=== PATIENT | male | born 1995 | race Caucasian/White ===

== ENCOUNTER 2023-08-01 10:54 | Emergency (ER) | payer OTHER, SELFPAY ==
[2023-08-01 10:59] VITALS: BP 119/80; PULSE 64; RESP 20; TEMP 36.8; O2SAT 100; BMI 15.9
--- NOTE | 2023-08-01 11:10 | ECG_ITS ---
[facility] Test Date: 2023-08-01 Pat Name: ARGENIS GALLEGOS Department: Room: - Gender: Male Rn Allergy: : 1995 Requested By: Order Number: [id number] Reading MD: JOHN FARAH Measurements Intervals [place] Rate: 68 P: 65 AL: 104 QRS: 81 QRSD: 94 T: 69 QT: 396 QTc: 412 Interpretive Statements 1100 Sinus rhythm 1102 Sinus arrhythmia 2210 Short AL interval 9150 abnormal ECG No previous ECG available for comparison Electronically Signed On 08-02-2023 7:08:13 EDT by JOHN FARAH
--- NOTE | 2023-08-01 11:13 | PC.NURSE ---
Patient reports recently quit smoking and has been vaping and is trying to quit vaping at this time.
--- NOTE | 2023-08-01 11:32 | ED_ITS ---
HPI - General Adult General Chief complaint: Anxiety Stated complaint: HEART PALPITATIONS Time Seen by Provider: 08/01/23 11:19 Source: patient Mode of arrival: walk-in Limitations: no limitations History of Present Illness HPI narrative: this patient's here complaining of palpitations and possible racing heart rate. He has a pulse oximetry at home. He says that sometimes when he gets up and moves about his heart rate goes up to ninety. When he rustic slows down to fifty. He quit smoking daily use of marijuana products approximately one week ago any been on that for many many years. He does not use any other stimulants or amphetamines. His caffeine intake is one or 2 cups of coffee a day. He does not use any other eenergy pills. He's lost about 5 pounds. He is not known of any thyroid disease. He really hasn't seen a doctor recently. He's not had influenza or viral type symptomatology. He's not had fever shakes or chills. No swelling of his legs. No history of cardiac problems. No tobacco use. Related Data Allergies Allergy/AdvReac Type Severity Reaction Status Date / Time No Known Drug Allergies Allergy Verified 08/01/23 10:59 [facility] Social History Smoking status: Current every day smoker Exam Narrative Exam Narrative: awake alert pleasant good historian no distress. 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 He did not show any ectopy or tachyarrhythmia. Constitutional his color is good his skin is warm and dry he is quite thin. Mucous members are moist and pink. I shows no evidence of scleral icterus or anemia. Neck is soft and supple. Respiratory his lungs are completely clear with no wheezes rales or rhonchi. Chest his heart sounds are normal with no clicks rubs gallops or murmurs. Chest wall is nontender. Extremities show no evidence of deep vein thrombosis phlebitis or edema. Neurological examination shows no focal neurological deficits or symptomatology. Addendum to the neck he has no evidence of thyroid nodules or masses. Constitutional Vital Signs, click to edit/add: Last Vital Signs Temp 98.3 F 08/01/23 10:59 Pulse 64 08/01/23 10:59 Resp 20 08/01/23 10:59 BP 119/80 08/01/23 10:59 Pulse Ox 100 08/01/23 10:59 O2 Del Method Room Air 08/01/23 10:59 Course Vital Signs Vital signs: Vital Signs Temperature 98.3 F 08/01/23 10:59 Pulse Rate 64 08/01/23 10:59 Respiratory Rate 20 08/01/23 10:59 Blood Pressure 119/80 08/01/23 10:59 Pulse Oximetry 100 08/01/23 10:59 Oxygen Delivery Method Room Air 08/01/23 10:59 Temperature 98.3 F 08/01/23 10:59 Pulse Rate 64 08/01/23 10:59 Respiratory Rate 20 08/01/23 10:59 Blood Pressure 119/80 08/01/23 10:59 Pulse Oximetry 100 08/01/23 10:59 Oxygen Delivery Method Room Air 08/01/23 10:59 Medical Decision Making MDM Narrative Medical decision making narrative: patient's 12-lead EKG shows sinus rhythm with CA interval 0.10. There is no delta wave or evidence of reentrant tachycardia. No ST segment elevation or evidence of pericarditis. His thyroid study is normal. He's recently discontinued chronic use of marijuana. I see no acute emergency condition but he should follow up with primary care doctor for further evaluation of his symptoms and possible Holter monitoring, but even by history his heart rate does not get above one hundred. Discharge Plan Discharge Chief Complaint: Anxiety Clinical Impression: Heart palpitations Patient Disposition: Home, Self-Care Time of Disposition Decision: 12:28 Additional Instructions: follow-up with his local provider to consider Holter monitoring and other diagnostics as indicated and return for any heart rate above 130/140 Stand Alone Forms: Portal Instructions Referrals: Physician,Non-Staff, MD [Primary Care Provider] - 1 week
--- NOTE | 2023-08-01 11:45 | XR_ITS ---
The [address] [address] Patient Name: ARGENIS GALLEGOS MRN: [id number] date: 1995 Sex: M Assigned Patient Location: ED.MAIN Current Patient Location: ER Accession/Order Number: [id number] Exam Date: 08/01/2023 11:40 Report Date: 08/01/2023 12:05 At the request of: JAVIER VAUGHN Procedure: XR chest 1V EXAM: XR chest 1V HISTORY: tachycardia COMPARISON: None. TECHNIQUE: AP view of the chest. FINDINGS: The cardiomediastinal silhouette is normal. The lungs are clear. There is no pneumothorax. No pleural effusion is noted. The osseous structures are intact. XR/XR chest 1V IMPRESSION: No acute cardiopulmonary process. Electronically authenticated by: KARRI BELTRAN Date: 08/01/2023 12:05
[2023-08-01 11:50] LABS: Basophils Percent Auto 0.3 % (0.2-2.0); Eosinophils Percent Auto 0.4 % (0.9-7.0); Hematocrit 43.4 % (42.0-54.0); Hemoglobin 14.9 g/dL (14.0-18.0); Immature Granulocytes Abs Auto 0.01 10^3/uL (0.00-0.03); Immature Granulocytes Pct Auto 0.1 % (0.0-0.5); Lymphocytes Absolute Auto 1.9 10^3/uL (1.2-3.8); Lymphocytes Percent Auto 26.8 % (20.5-60.0); Mean Corpuscular HGB Conc 34.3 g/dL (29.9-35.2); Mean Corpuscular Hemoglobin 29.7 pg (25.9-34.0); Mean Corpuscular Volume 86.5 fL (80.0-94.0); Mean Platelet Volume 10.5 fL (9.5-13.5); Monocytes Absolute Auto 0.5 10^3/uL (0.3-0.8); Monocytes Percent Auto 6.4 % (1.7-12.0); Neutrophils Absolute Auto 4.7 10^3/uL (1.4-6.5); Platelet Count 227 10^3/uL (150-450); Red Blood Count 5.02 10^6/uL (4.70-6.10); Red Cell Distribution Width 11.6 % (11.0-15.0); White Blood Count 7.1 10^3/uL (4.0-11.0)
[2023-08-01 11:55] VITALS: BP 119/80; PULSE 58; O2SAT 100
[2023-08-01 12:03] LABS: Alanine Aminotransferase 19 U/L (16-63); Albumin Globulin Ratio 1.3; Albumin Level 4.5 g/dL (3.4-5.0); Alkaline Phosphatase 62 U/L (46-116); Anion Gap 9.6; Aspartate Amino Transferase 12 U/L (15-37); BUN Creatinine Ratio 11.6; Calcium 9.7 mg/dL (8.5-10.1); Carbon Dioxide 27.2 mmol/L (21.0-32.0); Chloride 104 mmol/L (98-107); Estimated GFR (African America >60 (>=60); Estimated GFR (Non-African Ame >60 (>=60); Globulin 3.5 g/dL; Glucose 75 mg/dL (74-106); Potassium 3.8 mmol/L (3.5-5.1); Sodium 137 mmol/L (136-145)
[2023-08-01 12:12] LABS: Thyroid Stimulating Hormone 0.533 uIU/mL (0.358-3.740); Troponin I High Sensitivity <4.0 pg/mL (4.0-76.1)
== END 2023-08-01 12:54 | disposition home or self-care (01) ==
PROVIDERS: Emergency Provider Emergency Medicine Emergency Medical Services
DX: R00.2 Palpitations (principal)
CPT/HCPCS: 36415; 71045; 80053; 84443; 84484; 85025; 93005; 99285

== ENCOUNTER 2023-08-17 10:17 | Outpatient (OUT) | payer OTHER, SELFPAY ==
--- NOTE | 2023-08-17 10:20 | US_ITS ---
[address] [address] Patient Name: ARGENIS GALLEGOS MRN: [id number] date: 1995 Sex: M Assigned Patient Location: US Current Patient Location: US Accession/Order Number: [id number] Exam Date: 08/17/2023 10:30 Report Date: 08/17/2023 13:09 At the request of: AKANKSHA BASS Procedure: US right upper quadrant EXAMINATION: US right upper quadrant HISTORY: Abdominal Pain R10.9 ; right upper quadrant pain for 2 months COMPARISON: No relevant comparison available. TECHNIQUE: Transabdominal evaluation of the right upper quadrant. FINDINGS: LIVER: Normal size and echotexture. Color Doppler demonstrates patent hepatic veins. PORTAL VEIN: Duplex Doppler demonstrates normal hepatopetal flow pattern with flow velocity averaging 32 cm/s. GALLBLADDER: No visible gallstones, wall thickening, or pericholecystic free fluid. Negative sonographic Enriquez's sign. BILIARY: No abnormal dilation or stones. Common bile duct diameter is within normal limits. PANCREASE: No visible mass, abnormal atrophy, or duct dilation. KIDNEY: Contains a nonobstructing 2 mm stone. Size: 9.1 x 4.8 x 4.4 cm US/US right upper quadrant IMPRESSION: 1. Nonobstructing right nephrolithiasis. 2. Otherwise unremarkable right upper quadrant ultrasound. Electronically authenticated by: ANTONIO ADAMS Date: 08/17/2023 13:09
== END 2023-08-17 10:18 | disposition home or self-care (01) ==
LOC: US 10:17
PROVIDERS: PCP Nurse Practitioner; Visit Provider Nurse Practitioner
DX: R10.9 Unspecified abdominal pain (principal); N20.0 Calculus of kidney
CPT/HCPCS: 76705

== ENCOUNTER 2023-08-31 08:11 | Outpatient (OUT) | payer OTHER, SELFPAY ==
--- NOTE | 2023-08-31 07:40 | NM_ITS ---
The [address] [address] Patient Name: ARGENIS GALLEGOS MRN: [id number] date: 1995 Sex: M Assigned Patient Location: SC Current Patient Location: SC Accession/Order Number: [id number] Exam Date: 08/31/2023 07:35 Report Date: 08/31/2023 22:43 At the request of: AKANKSHA BASS Procedure: SC hepatobiliary w pharm EXAMINATION: SC hepatobiliary w pharm HISTORY: ABDOMINAL PAIN , right upper quadrant pain COMPARISON: No relevant comparison available. TECHNIQUE: Radionuclide hepatobiliary imaging was performed after intravenous injection of 4.6 mCi Tc-99m VANESA derivative with sequential acquisitions every 1 minute for one hour. Hepatobiliary imaging with gallbladder ejection fraction analysis was then performed with sequential imaging every 1 minute for 60 minutes following ingestion of 8 oz. Ensure Plus. FINDINGS: LIVER: Normal, prompt and uniform radiotracer uptake and clearing. BILIARY DUCTS: Normal radioisotopic biliary excretion. GALLBLADDER: Normal with no evidence of cystic duct obstruction. INTESTINE: Normal with no evidence of common biliary ductal obstruction. EJECTION FRACTION: 70 % within 60 minutes. (Normal EF > 38%). OTHER: Negative. SC/SC hepatobiliary w pharm IMPRESSION: 1. Normal nuclear medicine HIDA scan. Electronically authenticated by: ANTONIO ADAMS Date: 08/31/2023 22:43
--- NOTE | 2023-08-31 10:03 | XR_ITS ---
[address] [address] Patient Name: ARGENIS GALLEGOS MRN: [id number] date: 1995 Sex: M Assigned Patient Location: [place] Current Patient Location: Accession/Order Number: [id number] Exam Date: 08/31/2023 10:13 Report Date: 09/01/2023 06:58 At the request of: AKANKSHA BASS Procedure: XR abdomen 1V EXAMINATION: XR abdomen 1V HISTORY: Right Nephrolithiasis N20.0 ; right upper quadrant pain for 2 months COMPARISON: No relevant comparison available. FINDINGS: BOWEL GAS PATTERN: No abnormal dilation or deviation. CALCIFICATIONS: None significant. OTHER: Negative. No abnormal gaseous collections. XR/XR abdomen 1V IMPRESSION: 1. No abnormal or suspicious findings. Moderate stool burden. Electronically authenticated by: ANTONIO ADAMS Date: 09/01/2023 06:58
== END 2023-08-31 08:12 | disposition home or self-care (01) ==
LOC: NM 08:12
PROVIDERS: PCP Nurse Practitioner; Visit Provider Nurse Practitioner
DX: R10.9 Unspecified abdominal pain (principal); N20.0 Calculus of kidney
CPT/HCPCS: 74018; 78227; A9537